=== PATIENT | male | born 1935 | race Caucasian/White ===

== ENCOUNTER → 2016-06-25 | Outpatient (CLI) | payer MEDICARE ==
[~2016-06-25] MED LIST: ADVICOR 20 MG-51 TER PO; ALBUTEROL0.83 MG/ML IH; ALTACE 10MG TAB10 MG PO; ALTACE10 MG PO; ASPIR-LOW81 MG PO; ASPIR-LOX325 MG PO; ASPIRIN E.C. 8181 MG PO; CORDARONE200 MG PO; COREG 25MG25 MG/TAB PO; COREG 6.256.25 MG/TA PO; COUMADIN 5MG5 MG/TAB PO; DIGOXIN PO; HUMULIN 70/3100 U/M1 SQ; HUMULIN 70/3100 U/ML SQ; INSULIN 70/3100 U/ML SQ; K-DUR 10 MEQ T10 MEQ PO; LANTUS100 U/ML SQ; LASIX; LASIX 20MG TABL20 MG PO; LASIX 40MG TABL40 MG PO; LEVAQUIN 750MG750 MG PO; POTASSIUM CHLO10 ME2 PO; ROCEPHIN 2GM VIAL21 IV; SYMBICORT1 AE1 IH; VENTOLIN0.09 MG IH; ZAROXOLYN 2.52.5 MG PO
== END ==
LOC: COL.RAD 09:48
DX: I70.0 Atherosclerosis of aorta (principal)

== ENCOUNTER 2017-06-24 22:29 | Inpatient (IN) | payer MEDICARE ==
[~2017-06-24] VITALS: Ht 180.3 cm; Wt 88.4 kg
[~2017-06-24 22:29] MED LIST changes: +LEVOXYL0.05 MG PO
[2017-06-24 23:03] LABS: MEAN CELL VOLUME 85 fl (80.0-100.0); MEAN CORPUSCULAR HGB CONC 33 g/dl (33.0-37.0); PLATELET COUNT 291 K/mm3 (130-400); RED BLOOD COUNT 3.71 M/mm3 (4.20-5.60); REDCELL DISTRIBUTION WIDTH-CV 16.3 % (11.5-14.5)
[2017-06-24 23:06] LABS: HEMATOCRIT 31.4 % (42.0-52.0); HEMOGLOBIN 10.3 g/dl (13.5-18.0); MEAN CORPUSCULAR HEMOGLOBIN 28 pg (27.0-31.0)
[2017-06-24 23:08] LABS: INR 1.6 (0.8-3.0); PROTHROMBIN TIME 18.2 SECONDS (9.7-12.8)
[2017-06-24 23:14] LABS: ALBUMIN 3.3 gm/dL (3.5-5.0); BILIRUBIN,TOTAL 1.1 mg/dL (0.0-1.0); CALCIUM 8.5 mg/dL (8.4-10.2); CREATININE, serum 2.43 mg/dL (0.66-1.25); POTASSIUM 4.2 mmol/L (3.4-5.0); TOTAL PROTEIN 8.2 gm/dL (6.4-8.2)
[2017-06-24 23:19] LABS: BAND 2 % (0-10); LYMPHOCYTE 2 % (20.0-51.0); METAMYELOCYTE 1 % (0-0); NEUTROPHILS 86 % (42.0-75.2); PLATELET ESTIMATE NORMAL (NORMAL)
[2017-06-24 23:20] LABS: ANISOCYTOSIS 1+; HYPOCHROMIA 1+; MICROCYTOSIS 1+
[2017-06-24 23:30] LABS: TROPONIN-I 0.046 ng/mL (0.000-0.034)
[2017-06-25] VITALS (597 sets, daily range): BP systolic 84–115; BP diastolic 48–64; PULSE 70–82; TEMP 97–98.1; O2SAT 92–100
[2017-06-25 00:25] LABS: COLLECTION METHOD CLEAN CATCH
[2017-06-25 00:57] LABS: HYALINE CAST >12 /lpf; MUCOUS Present /lpf; PH 5 (5-8); SQUAMOUS EPITHELIAL 0-2 /hpf; URINE APPEARANCE Clear; URINE BACTERIA Rare /hpf; URINE BILIRUBIN Negative (NEGATIVE); URINE BLOOD 1+ (NEGATIVE); URINE COLOR Yellow; URINE GLUCOSE Negative (NEGATIVE); URINE KETONE Negative (NEGATIVE); URINE LEUKOCYTE ESTERASE Negative (NEGATIVE); URINE NITRATE Negative (NEGATIVE); URINE PROTEIN(semi-quant) Negative (NEGATIVE)
[2017-06-25 02:06] LABS: THYROID STIMULATING HORMONE 1.55 uIU/mL (0.465-4.680)
[2017-06-25 03:22] LABS: ARTERIAL BLD GAS O2 SATURATION 96.4 % (92-100); ARTERIAL BLOOD GAS BASE EXCESS -0.9 (-2-2); ARTERIAL BLOOD GAS HCO3 22.4 meq/L (22-26); ARTERIAL BLOOD GAS PCO2 32.3 mmHg (35-45); ARTERIAL BLOOD GAS PO2 92.4 mmHg (80-100); ARTERIAL BLOOD GAS pH 7.46 (7.35-7.45)
[2017-06-25 04:23] LABS: ALBUMIN 3.1 gm/dL (3.5-5.0); BILIRUBIN,TOTAL 0.8 mg/dL (0.0-1.0); CALCIUM 8.5 mg/dL (8.4-10.2); CREATININE, serum 2.81 mg/dL (0.66-1.25); MAGNESIUM 2.5 mg/dL (1.6-2.3); PHOSPHOROUS 5.7 mg/dL (2.5-4.5); POTASSIUM 3.9 mmol/L (3.4-5.0); TOTAL PROTEIN 7.8 gm/dL (6.4-8.2)
[2017-06-25 06:53] LABS: CHOLESTEROL RISK RATIO 8.8
[2017-06-25 06:54] LABS: MEAN CELL VOLUME 85 fl (80.0-100.0); MEAN CORPUSCULAR HGB CONC 33 g/dl (33.0-37.0); MEAN PLATELET VOLUME 12.1 fl (7.4-10.4); PLATELET COUNT 289 K/mm3 (130-400); REDCELL DISTRIBUTION WIDTH-CV 16.3 % (11.5-14.5)
[2017-06-25 06:59] LABS: HEMATOCRIT 31.3 % (42.0-52.0); HEMOGLOBIN 10.3 g/dl (13.5-18.0); MEAN CORPUSCULAR HEMOGLOBIN 28 pg (27.0-31.0)
[2017-06-25 07:20] LABS: BAND 11 % (0-10); LYMPHOCYTE 5 % (20.0-51.0); NEUTROPHILS 83 % (42.0-75.2)
[2017-06-25 07:21] LABS: PLATELET ESTIMATE NORMAL (NORMAL)
[2017-06-25 09:32] LABS: ARTERIAL BLD GAS O2 SATURATION 94.4 % (92-100); ARTERIAL BLD GAS TCO2 CT 21.8; ARTERIAL BLOOD GAS BASE EXCESS -3.6 (-2-2); ARTERIAL BLOOD GAS HCO3 20.7 meq/L (22-26); ARTERIAL BLOOD GAS PO2 80.2 mmHg (80-100); ARTERIAL BLOOD GAS pH 7.39 (7.35-7.45)
[2017-06-26] VITALS (607 sets, daily range): BP systolic 99–138; BP diastolic 50–70; PULSE 75–81; TEMP 97.4–98.5; O2SAT 81–100
[2017-06-26 05:48] LABS: MEAN CELL VOLUME 84 fl (80.0-100.0); MEAN CORPUSCULAR HGB CONC 33 g/dl (33.0-37.0); MEAN PLATELET VOLUME 11.2 fl (7.4-10.4); PLATELET COUNT 332 K/mm3 (130-400); RED BLOOD COUNT 3.65 M/mm3 (4.20-5.60); REDCELL DISTRIBUTION WIDTH-CV 15.8 % (11.5-14.5)
[2017-06-26 05:54] LABS: HEMATOCRIT 30.8 % (42.0-52.0); HEMOGLOBIN 10.2 g/dl (13.5-18.0); MEAN CORPUSCULAR HEMOGLOBIN 28 pg (27.0-31.0)
[2017-06-26 06:07] LABS: CALCIUM 8.3 mg/dL (8.4-10.2); CREATININE, serum 2.52 mg/dL (0.66-1.25); MAGNESIUM 2.5 mg/dL (1.6-2.3); POTASSIUM 3.4 mmol/L (3.4-5.0)
[2017-06-26 06:21] LABS: TROPONIN-I 0.201 ng/mL (0.000-0.034)
[2017-06-26 07:08] LABS: BAND 14 % (0-10); LYMPHOCYTE 9 % (20.0-51.0); NEUTROPHILS 77 % (42.0-75.2)
[2017-06-26 07:09] LABS: PLATELET ESTIMATE NORMAL (NORMAL); TOXIC GRANULATION PRESENT
[2017-06-27 04:20] VITALS: BP 132/63; PULSE 79; TEMP 98
[2017-06-27 07:48] VITALS: BP 122/63; PULSE 92; TEMP 97.7
[2017-06-27 11:12] LABS: CALCIUM 8.9 mg/dL (8.4-10.2); CREATININE, serum 2.03 mg/dL (0.66-1.25); POTASSIUM 3.5 mmol/L (3.4-5.0)
[2017-06-27 11:55] VITALS: BP 129/53; PULSE 100; TEMP 98.4
[2017-06-27 17:44] VITALS: BP 122/54; PULSE 97; TEMP 97.8
[2017-06-27 19:46] VITALS: BP 129/55; PULSE 88; TEMP 98.9
[2017-06-27 23:30] VITALS: BP 123/50; PULSE 86; TEMP 98.8
[2017-06-28] VITALS (8 sets, daily range): BP systolic 110–134; BP diastolic 55–84; PULSE 86–91; TEMP 97.3–98.7
[2017-06-28 07:20] LABS: BASO % 0.1 % (0.0-2.0); GRAN # 18.3 (1.4-6.5); GRAN % 86.6 % (42.2-75.2); LYMPH # 0.8 (1.2-3.4); LYMPH % 3.6 % (20.0-51.0); MEAN CELL VOLUME 87 fl (80.0-100.0); MEAN CORPUSCULAR HGB CONC 32 g/dl (33.0-37.0); MEAN PLATELET VOLUME 11.3 fl (7.4-10.4); MONO # 1.6 (0.1-0.6); MONO % 7.8 % (1.7-9.3); PLATELET COUNT 381 K/mm3 (130-400); RED BLOOD COUNT 3.94 M/mm3 (4.20-5.60); REDCELL DISTRIBUTION WIDTH-CV 16.2 % (11.5-14.5)
[2017-06-28 07:32] LABS: HEMATOCRIT 34.1 % (42.0-52.0); HEMOGLOBIN 10.8 g/dl (13.5-18.0); MEAN CORPUSCULAR HEMOGLOBIN 27 pg (27.0-31.0)
[2017-06-28 07:52] LABS: BILIRUBIN,TOTAL 0.6 mg/dL (0.0-1.0); CALCIUM 8.7 mg/dL (8.4-10.2); CREATININE, serum 2.01 mg/dL (0.66-1.25); POTASSIUM 3.2 mmol/L (3.4-5.0); TOTAL PROTEIN 7.5 gm/dL (6.4-8.2)
[2017-06-29] VITALS (10 sets, daily range): BP systolic 94–122; BP diastolic 49–74; PULSE 46–100; TEMP 97.6–98.3
[2017-06-29 06:27] LABS: MEAN CELL VOLUME 85 fl (80.0-100.0); MEAN CORPUSCULAR HGB CONC 32 g/dl (33.0-37.0); MEAN PLATELET VOLUME 11.1 fl (7.4-10.4); PLATELET COUNT 386 K/mm3 (130-400); RED BLOOD COUNT 3.97 M/mm3 (4.20-5.60)
[2017-06-29 06:43] LABS: CALCIUM 8.7 mg/dL (8.4-10.2); CREATININE, serum 2.44 mg/dL (0.66-1.25); HEMATOCRIT 33.8 % (42.0-52.0); HEMOGLOBIN 10.8 g/dl (13.5-18.0); MEAN CORPUSCULAR HEMOGLOBIN 27 pg (27.0-31.0); POTASSIUM 3.8 mmol/L (3.4-5.0)
[2017-06-29 07:36] LABS: BAND 4 % (0-10); LYMPHOCYTE 2 % (20.0-51.0); NEUTROPHILS 93 % (42.0-75.2); PLATELET ESTIMATE NORMAL (NORMAL); TOXIC GRANULATION PRESENT
[2017-06-29 07:38] LABS: DOHLE BODIES PRESENT
[2017-06-30] VITALS (7 sets, daily range): BP systolic 93–112; BP diastolic 26–72; PULSE 57–95; TEMP 97.6–98.6
[2017-06-30 06:36] LABS: MEAN CELL VOLUME 87 fl (80.0-100.0); MEAN CORPUSCULAR HGB CONC 32 g/dl (33.0-37.0); MEAN PLATELET VOLUME 11.3 fl (7.4-10.4); PLATELET COUNT 388 K/mm3 (130-400); RED BLOOD COUNT 3.74 M/mm3 (4.20-5.60); REDCELL DISTRIBUTION WIDTH-CV 16.2 % (11.5-14.5)
[2017-06-30 07:01] LABS: CALCIUM 8.8 mg/dL (8.4-10.2); CREATININE, serum 2.32 mg/dL (0.66-1.25); MAGNESIUM 2.8 mg/dL (1.6-2.3); POTASSIUM 3.4 mmol/L (3.4-5.0)
[2017-06-30 07:10] LABS: HEMOGLOBIN 10.3 g/dl (13.5-18.0); MEAN CORPUSCULAR HEMOGLOBIN 28 pg (27.0-31.0)
[2017-06-30 07:11] LABS: HEMATOCRIT 32.6 % (42.0-52.0)
[2017-06-30 07:57] LABS: BAND 1 % (0-10); LYMPHOCYTE 4 % (20.0-51.0); NEUTROPHILS 92 % (42.0-75.2); PLATELET ESTIMATE NORMAL (NORMAL); TOXIC GRANULATION PRESENT
[2017-06-30 22:48] LABS: CALCIUM 8.2 mg/dL (8.4-10.2); CREATININE, serum 2.41 mg/dL (0.66-1.25); POTASSIUM 3.5 mmol/L (3.4-5.0)
[2017-07-01 03:29] VITALS: BP 135/55; PULSE 67; TEMP 97.9
[2017-07-01 06:55] LABS: MEAN CELL VOLUME 86 fl (80.0-100.0); MEAN CORPUSCULAR HEMOGLOBIN 28 pg (27.0-31.0); MEAN CORPUSCULAR HGB CONC 32 g/dl (33.0-37.0); MEAN PLATELET VOLUME 11.3 fl (7.4-10.4); PLATELET COUNT 351 K/mm3 (130-400)
[2017-07-01 06:57] LABS: HEMATOCRIT 30.9 % (42.0-52.0)
[2017-07-01 07:11] LABS: CALCIUM 8.3 mg/dL (8.4-10.2); CREATININE, serum 2.24 mg/dL (0.66-1.25); POTASSIUM 3.3 mmol/L (3.4-5.0)
[2017-07-01 07:38] VITALS: BP 103/38; PULSE 66; TEMP 98.4
[2017-07-01 07:47] LABS: BAND 5 % (0-10); EOSINOPHIL 1 % (0-4); LYMPHOCYTE 2 % (20.0-51.0); METAMYELOCYTE 1 % (0-0); NEUTROPHILS 86 % (42.0-75.2); PLATELET ESTIMATE NORMAL (NORMAL)
[2017-07-01 08:12] LABS: ANISOCYTOSIS 1+; POLYCHROMASIA 1+
[2017-07-01 12:38] VITALS: BP 114/40; PULSE 64; TEMP 97.7
[2017-07-01 15:50] VITALS: BP 111/45; PULSE 65; TEMP 98
[2017-07-01 20:27] VITALS: BP 110/48; PULSE 65; TEMP 98.5
[2017-07-02 00:02] VITALS: BP 110/49; PULSE 66; TEMP 98
[2017-07-02 03:11] VITALS: BP 129/59; PULSE 66
[2017-07-02 06:45] LABS: MEAN CELL VOLUME 88 fl (80.0-100.0); MEAN CORPUSCULAR HGB CONC 31 g/dl (33.0-37.0); MEAN PLATELET VOLUME 11.5 fl (7.4-10.4); PLATELET COUNT 332 K/mm3 (130-400); RED BLOOD COUNT 3.55 M/mm3 (4.20-5.60); REDCELL DISTRIBUTION WIDTH-CV 16.3 % (11.5-14.5)
[2017-07-02 06:55] LABS: HEMATOCRIT 31.3 % (42.0-52.0); HEMOGLOBIN 9.8 g/dl (13.5-18.0); MEAN CORPUSCULAR HEMOGLOBIN 28 pg (27.0-31.0)
[2017-07-02 06:59] LABS: CALCIUM 8.2 mg/dL (8.4-10.2); CREATININE, serum 2.05 mg/dL (0.66-1.25); MAGNESIUM 2.6 mg/dL (1.6-2.3); POTASSIUM 3.2 mmol/L (3.4-5.0)
[2017-07-02 08:19] VITALS: BP 130/59; PULSE 65; TEMP 98.7
[2017-07-02 08:33] LABS: ANISOCYTOSIS 1+; BAND 1 % (0-10); EOSINOPHIL 1 % (0-4); LYMPHOCYTE 7 % (20.0-51.0); MYELOCYTE 1 % (0-0); NEUTROPHILS 85 % (42.0-75.2); PLATELET ESTIMATE NORMAL (NORMAL)
[2017-07-02 08:34] LABS: POLYCHROMASIA 1+
[2017-07-02 08:35] LABS: TOXIC GRANULATION PRESENT
[2017-07-02] MEDS ORDERED: ELIQUIS 2.5 PO (09:38)
[2017-07-02] MEDS ORDERED: ALTACE 10MG TAB10 MG PO (09:38)
[2017-07-02] MEDS ORDERED: HYDROCORTISONE30 G3 TP (09:39)
[2017-07-02] MEDS ORDERED: CLEOCIN HCL300 MG PO (09:41)
== END 2017-07-02 14:15 | DRG 871 ==
LOC: COL.ER 22:29 → ICU 06-25 00:21 → MEDICAL 06-26 17:36
PROVIDERS: Anesthesiology Critical Care Medicine; Emergency Medicine; Internal Medicine; Internal Medicine Pulmonary Disease; Nurse Practitioner Family; Physician Assistant
PROC: 5A2204Z Restoration of Cardiac Rhythm, Single (ICD-10-PCS; principal; 2017-06-29)
DX: A41.02 Sepsis due to Methicillin resistant Staphylococcus aureus (principal); I50.23 Acute on chronic systolic (congestive) heart failure; J69.0 Pneumonitis due to inhalation of food and vomit; I13.0 Hypertensive heart and chronic kidney disease with heart failure and stage 1 through stage 4 chronic kidney disease, or unspecified chronic kidney disease; N17.9 Acute kidney failure, unspecified; E87.1 Hypo-osmolality and hyponatremia; N18.3 Chronic kidney disease, stage 3 (moderate); E11.22 Type 2 diabetes mellitus with diabetic chronic kidney disease; I25.10 Atherosclerotic heart disease of native coronary artery without angina pectoris; I48.91 Unspecified atrial fibrillation; E11.65 Type 2 diabetes mellitus with hyperglycemia; E87.6 Hypokalemia; Z95.2 Presence of prosthetic heart valve; Z95.1 Presence of aortocoronary bypass graft; Z79.4 Long term (current) use of insulin; Z87.891 Personal history of nicotine dependence; I34.0 Nonrheumatic mitral (valve) insufficiency
CPT/HCPCS: 99223-AI; 99231-AI; 99232-AI; 99233-AI; 99239; C1751; G9654; J0696; J1250; J1644; J1815; J1940; J2543; J2704; J2930; J3010; J3370; J3480; J7040; J7050; J7060

== ENCOUNTER 2017-07-13 14:59 | Inpatient (IN) | payer MEDICARE ==
[~2017-07-13] VITALS: Ht 177.8 cm; Wt 90.4 kg
[~2017-07-13 14:59] MED LIST changes: +CLEOCIN HCL300 MG PO; +ELIQUIS 2.5 PO; +HYDROCORTISONE30 G3 TP
[2017-07-13 15:55] LABS: BASO # 0.1 (0.0-0.2); BASO % 0.5 % (0.0-2.0); EOS # 0.2 (0.0-0.7); EOS % 1.8 % (0-4.0); GRAN # 8.9 (1.4-6.5); GRAN % 78.3 % (42.2-75.2); INR 1.7 (0.8-3.0); LYMPH # 1.1 (1.2-3.4); LYMPH % 9.2 % (20.0-51.0); MEAN CELL VOLUME 86 fl (80.0-100.0); MEAN CORPUSCULAR HGB CONC 31 g/dl (33.0-37.0); MEAN PLATELET VOLUME 10.4 fl (7.4-10.4); MONO % 9.1 % (1.7-9.3); PLATELET COUNT 258 K/mm3 (130-400); PROTHROMBIN TIME 18.9 SECONDS (9.7-12.8); RED BLOOD COUNT 3.29 M/mm3 (4.20-5.60); REDCELL DISTRIBUTION WIDTH-CV 16.1 % (11.5-14.5)
[2017-07-13 15:58] LABS: PARTIAL THROMBOPLASTIN TIME 38.4 SECONDS (26.0-37.0)
[2017-07-13 16:05] LABS: ALBUMIN 2.7 gm/dL (3.5-5.0); BILIRUBIN,TOTAL 0.3 mg/dL (0.0-1.0); CALCIUM 8.4 mg/dL (8.4-10.2); CREATININE, serum 1.49 mg/dL (0.66-1.25); POTASSIUM 5.1 mmol/L (3.4-5.0)
[2017-07-13 16:14] LABS: COLLECTION METHOD CLEAN CATCH
[2017-07-13 16:16] LABS: C-REACTIVE PROTEIN 13.4 mg/dL (0.0-0.9)
[2017-07-13 16:18] LABS: TROPONIN-I 0.043 ng/mL (0.000-0.034)
[2017-07-13 16:21] LABS: ERYTHROCYTE SEDIMENTATION RATE > 140 mm/hr (0-30); HEMATOCRIT 28.3 % (42.0-52.0); HEMOGLOBIN 8.9 g/dl (13.5-18.0); MEAN CORPUSCULAR HEMOGLOBIN 27 pg (27.0-31.0)
[2017-07-13 16:27] LABS: HYALINE CAST >12 /lpf; MUCOUS Present /lpf; PH 5 (5-8); SQUAMOUS EPITHELIAL None Seen /hpf; URINE APPEARANCE Clear; URINE BACTERIA None Seen /hpf; URINE BILIRUBIN Negative (NEGATIVE); URINE BLOOD 1+ (NEGATIVE); URINE COLOR Yellow; URINE GLUCOSE Negative (NEGATIVE); URINE KETONE Negative (NEGATIVE); URINE LEUKOCYTE ESTERASE Negative (NEGATIVE); URINE NITRATE Negative (NEGATIVE); URINE PROTEIN(semi-quant) Negative (NEGATIVE); URINE UROBILINOGEN Negative (NEGATIVE)
[2017-07-13] MEDS ORDERED: ULTRAM 50MG TAB50 MG PO (17:33)
[2017-07-13 19:29] VITALS: BP 91/44; PULSE 62; TEMP 98
[2017-07-13 20:25] VITALS: BP 91/44; PULSE 62; TEMP 98
[2017-07-13 23:33] VITALS: BP 102/45; PULSE 65; TEMP 98.1
[2017-07-14 04:49] VITALS: BP 122/58; PULSE 72; TEMP 98
[2017-07-14 08:03] VITALS: BP 122/67; PULSE 81; TEMP 98.7
[2017-07-14 09:35] LABS: BASO # 0.1 (0.0-0.2); BASO % 0.6 % (0.0-2.0); EOS # 0.2 (0.0-0.7); EOS % 2.4 % (0-4.0); GRAN # 6.9 (1.4-6.5); GRAN % 79.8 % (42.2-75.2); LYMPH # 0.7 (1.2-3.4); LYMPH % 7.5 % (20.0-51.0); MEAN CELL VOLUME 88 fl (80.0-100.0); MEAN CORPUSCULAR HGB CONC 31 g/dl (33.0-37.0); MEAN PLATELET VOLUME 11.4 fl (7.4-10.4); MONO # 0.8 (0.1-0.6); MONO % 8.8 % (1.7-9.3); PLATELET COUNT 202 K/mm3 (130-400); RED BLOOD COUNT 3.19 M/mm3 (4.20-5.60); REDCELL DISTRIBUTION WIDTH-CV 15.9 % (11.5-14.5)
[2017-07-14 09:36] LABS: HEMATOCRIT 27.9 % (42.0-52.0); HEMOGLOBIN 8.6 g/dl (13.5-18.0); MEAN CORPUSCULAR HEMOGLOBIN 27 pg (27.0-31.0)
[2017-07-14 09:46] LABS: CALCIUM 8.2 mg/dL (8.4-10.2); CREATININE, serum 1.37 mg/dL (0.66-1.25); POTASSIUM 4.7 mmol/L (3.4-5.0)
[2017-07-14 12:38] VITALS: BP 123/58; PULSE 79; TEMP 98.4
[2017-07-14 15:48] VITALS: BP 98/75; PULSE 81; TEMP 98.4
[2017-07-14 19:32] VITALS: BP 130/55; PULSE 79; TEMP 101.3
[2017-07-14 23:14] VITALS: BP 136/63; PULSE 81; TEMP 98.7
[2017-07-15] VITALS (7 sets, daily range): BP systolic 101–163; BP diastolic 46–81; PULSE 81–90; TEMP 98.2–99.8
[2017-07-15 06:59] LABS: BASO # 0.1 (0.0-0.2); BASO % 0.7 % (0.0-2.0); EOS # 0.3 (0.0-0.7); EOS % 3.3 % (0-4.0); GRAN # 5.5 (1.4-6.5); GRAN % 72.9 % (42.2-75.2); LYMPH # 0.9 (1.2-3.4); LYMPH % 11.7 % (20.0-51.0); MEAN CELL VOLUME 87 fl (80.0-100.0); MEAN CORPUSCULAR HGB CONC 31 g/dl (33.0-37.0); MEAN PLATELET VOLUME 10.3 fl (7.4-10.4); MONO # 0.8 (0.1-0.6); MONO % 10.6 % (1.7-9.3); PLATELET COUNT 242 K/mm3 (130-400); RED BLOOD COUNT 2.86 M/mm3 (4.20-5.60); REDCELL DISTRIBUTION WIDTH-CV 15.9 % (11.5-14.5)
[2017-07-15 07:19] LABS: HEMATOCRIT 24.8 % (42.0-52.0); HEMOGLOBIN 7.7 g/dl (13.5-18.0); MEAN CORPUSCULAR HEMOGLOBIN 27 pg (27.0-31.0)
[2017-07-15 07:32] LABS: ANION GAP 9 mmol/L (7-16); BLOOD UREA NITROGEN 24 mg/dL (9-20); CALCIUM 7.6 mg/dL (8.4-10.2); CARBON DIOXIDE 26 mmol/L (22-30); CHLORIDE 103 mmol/L (98-107); GLUCOSE 147 mg/dL (74-106); POTASSIUM 4.3 mmol/L (3.4-5.0); SODIUM 137 mmol/L (137-145)
[2017-07-15 13:31] LABS: RETIC # 0.06 M/mm3 (0.02-0.16)
[2017-07-15 13:53] LABS: IRON,SERUM 12 ug/dL (35-150)
[2017-07-15 14:03] LABS: TOTAL IRON BINDING CAPACITY 180 ug/dL (261-462)
[2017-07-15 14:30] LABS: FERRITIN 739 ng/mL (18-464)
[2017-07-16 03:34] VITALS: BP 122/61; PULSE 85; TEMP 99.1
[2017-07-16 06:48] LABS: BASO % 0.4 % (0.0-2.0); EOS # 0.2 (0.0-0.7); EOS % 2.7 % (0-4.0); GRAN # 5.1 (1.4-6.5); GRAN % 73.4 % (42.2-75.2); LYMPH # 0.8 (1.2-3.4); MEAN CELL VOLUME 86 fl (80.0-100.0); MEAN CORPUSCULAR HGB CONC 31 g/dl (33.0-37.0); MEAN PLATELET VOLUME 10.2 fl (7.4-10.4); MONO # 0.7 (0.1-0.6); MONO % 10.4 % (1.7-9.3); PLATELET COUNT 263 K/mm3 (130-400); RED BLOOD COUNT 2.88 M/mm3 (4.20-5.60); REDCELL DISTRIBUTION WIDTH-CV 15.8 % (11.5-14.5)
[2017-07-16 06:55] LABS: HEMATOCRIT 24.7 % (42.0-52.0); HEMOGLOBIN 7.7 g/dl (13.5-18.0); MEAN CORPUSCULAR HEMOGLOBIN 27 pg (27.0-31.0)
[2017-07-16 07:08] LABS: CALCIUM 7.9 mg/dL (8.4-10.2); CREATININE, serum 1.11 mg/dL (0.66-1.25); POTASSIUM 4.1 mmol/L (3.4-5.0)
[2017-07-16 08:06] VITALS: BP 150/58; PULSE 84; TEMP 98.3
[2017-07-16] MEDS ORDERED: FERROUS SU325 MG/TAB PO (10:45)
[2017-07-16] MEDS ORDERED: DOXYCYCLINE 10100 MG PO (10:45)
[2017-07-16] MEDS ORDERED: K-TAB10 PO (10:46)
[2017-07-16] MEDS ORDERED: LASIX 20MG TABL20 MG PO (10:46)
[2017-07-16] MEDS ORDERED: TYLENOL 325MG325 MG PO (10:46)
[2017-07-16] MEDS ORDERED: STOOL SOFTENER100 M2 PO (10:47)
[2017-07-16] MEDS ORDERED: ULTRAM 50MG TAB50 MG PO (10:48)
[2017-07-16] MEDS ORDERED: FOLIC ACID 11 MG/TA1 PO (10:48)
[2017-07-16] MEDS ORDERED: HUMULIN 70/30 PE3 ML SQ (10:48)
[2017-07-16 12:08] VITALS: BP 104/63; PULSE 100; TEMP 98.4
[2017-07-16 12:30] VITALS: BP 104/63; PULSE 100; TEMP 98.4
== END 2017-07-16 14:00 | DRG 314 ==
LOC: COL.ER 14:59 → MEDICAL 16:36
PROVIDERS: Emergency Medicine; Physician Assistant
DX: T80.218A Other infection due to central venous catheter, initial encounter (principal); A41.9 Sepsis, unspecified organism; I50.22 Chronic systolic (congestive) heart failure; Z66 Do not resuscitate; I11.0 Hypertensive heart disease with heart failure; E11.649 Type 2 diabetes mellitus with hypoglycemia without coma; I48.91 Unspecified atrial fibrillation; Z95.1 Presence of aortocoronary bypass graft; Z79.4 Long term (current) use of insulin; Z87.891 Personal history of nicotine dependence; Z95.2 Presence of prosthetic heart valve
CPT/HCPCS: 99223-AI; 99232-AI; 99233-AI; 99239; J1815; J3370; J7050

== ENCOUNTER 2017-07-22 18:30 | Emergency (ER) | payer MEDICARE ==
[~2017-07-22] VITALS: Ht 177.8 cm; Wt 95.5 kg
[~2017-07-22 18:30] MED LIST changes: +DOXYCYCLINE 10100 MG PO; +FERROUS SU325 MG/TAB PO; +FOLIC ACID 11 MG/TA1 PO; +HUMULIN 70/30 PE3 ML SQ; +K-TAB10 PO; +STOOL SOFTENER100 M2 PO; +TYLENOL 325MG325 MG PO; +ULTRAM 50MG TAB50 MG PO
[2017-07-22 18:35] VITALS: TEMP 98.8
[2017-07-22 19:52] LABS: MEAN CELL VOLUME 86 fl (80.0-100.0); MEAN CORPUSCULAR HGB CONC 30 g/dl (33.0-37.0); MEAN PLATELET VOLUME 10.3 fl (7.4-10.4); PLATELET COUNT 422 K/mm3 (130-400); RED BLOOD COUNT 2.92 M/mm3 (4.20-5.60); REDCELL DISTRIBUTION WIDTH-CV 16.1 % (11.5-14.5)
[2017-07-22 19:55] LABS: HEMATOCRIT 25.1 % (42.0-52.0); HEMOGLOBIN 7.6 g/dl (13.5-18.0); MEAN CORPUSCULAR HEMOGLOBIN 26 pg (27.0-31.0)
[2017-07-22 20:06] LABS: ALANINE AMINOTRANSFERASE 84 U/L (21-72); ALBUMIN 2.5 gm/dL (3.5-5.0); ALKALINE PHOSPHATASE 267 U/L (50-136); ANION GAP 11 mmol/L (7-16); AST,SGOT 52 U/L (15-37); BILIRUBIN,TOTAL 0.3 mg/dL (0.0-1.0); BLOOD UREA NITROGEN 26 mg/dL (9-20); C-REACTIVE PROTEIN 5.4 mg/dL (0.0-0.9); CARBON DIOXIDE 25 mmol/L (22-30); CHLORIDE 102 mmol/L (98-107); GLUCOSE 228 mg/dL (74-106); POTASSIUM 4.3 mmol/L (3.4-5.0); SODIUM 138 mmol/L (137-145); TOTAL PROTEIN 6.5 gm/dL (6.4-8.2)
[2017-07-22 20:12] LABS: INR 1.6 (0.8-3.0); PROTHROMBIN TIME 18.1 SECONDS (9.7-12.8)
[2017-07-22 20:15] LABS: PARTIAL THROMBOPLASTIN TIME 36.7 SECONDS (26.0-37.0)
[2017-07-22 20:21] LABS: TROPONIN-I < 0.012 ng/mL (0.000-0.034)
[2017-07-22 20:22] LABS: COLLECTION METHOD CLEAN CATCH
[2017-07-22 20:36] LABS: HYALINE CAST >12 /lpf; MUCOUS Present /lpf; PH 5 (5-8); SQUAMOUS EPITHELIAL 0-2 /hpf; URINE APPEARANCE Clear; URINE BACTERIA Rare /hpf; URINE BILIRUBIN Negative (NEGATIVE); URINE BLOOD 1+ (NEGATIVE); URINE COLOR Yellow; URINE GLUCOSE Negative (NEGATIVE); URINE KETONE Negative (NEGATIVE); URINE LEUKOCYTE ESTERASE Negative (NEGATIVE); URINE NITRATE Negative (NEGATIVE); URINE PROTEIN(semi-quant) Negative (NEGATIVE); URINE RBC 0-2 /hpf; URINE UROBILINOGEN Negative (NEGATIVE)
[2017-07-22] MEDS ORDERED: CLEOCIN HCL300 MG PO (20:40)
[2017-07-22] MEDS ORDERED: HEPARIN 100U100 U/M1 (20:41)
[2017-07-22] MEDS ORDERED: HUMULIN R 10100 U/ML SQ (20:42)
[2017-07-22] MEDS ORDERED: HUMULIN 70/3100 U/M1 SQ (20:43)
[2017-07-22] MEDS ORDERED: LASIX 40MG TABL40 MG PO (20:44)
[2017-07-22] MEDS ORDERED: KLOR-CON SPRIN10 MEQ PO (20:44)
[2017-07-22 22:08] LABS: BAND 2 % (0-10); EOSINOPHIL 1 % (0-4); LYMPHOCYTE 14 % (20.0-51.0); NEUTROPHILS 80 % (42.0-75.2); PLATELET ESTIMATE NORMAL (NORMAL)
[2017-07-22 23:10] VITALS: BP 121/76; PULSE 65
[2017-07-23] MEDS ORDERED: ZAROXOLYN 2.52.5 MG PO (13:41)
[2017-07-23] MEDS ORDERED: ALTACE 5MG5 MG PO (13:42)
== END 2017-07-22 23:10 ==
LOC: COL.ER 18:30
PROVIDERS: Emergency Medicine
DX: D64.9 Anemia, unspecified (principal); E11.9 Type 2 diabetes mellitus without complications; I11.0 Hypertensive heart disease with heart failure; I50.9 Heart failure, unspecified; I48.91 Unspecified atrial fibrillation; Z79.01 Long term (current) use of anticoagulants; Z79.82 Long term (current) use of aspirin; Z79.4 Long term (current) use of insulin

== ENCOUNTER 2017-07-24 11:00 | Outpatient (RCR) | payer MEDICARE ==
[2017-07-23 14:50] VITALS: BP 114/58; PULSE 63; TEMP 98.2
[2017-07-23 15:05] VITALS: BP 113/53; PULSE 64; TEMP 98.3
[2017-07-23 15:22] VITALS: BP 119/77; PULSE 60; TEMP 98.1
[2017-07-23 16:05] VITALS: BP 120/52; PULSE 62; TEMP 98.2
[2017-07-23 17:05] VITALS: BP 113/51; PULSE 64; TEMP 97.6
[2017-07-23 17:26] VITALS: BP 120/56; PULSE 60; TEMP 98
[~2017-07-24] VITALS: Ht 177.8 cm; Wt 95.6 kg
[~2017-07-24 11:00] MED LIST changes: +ALTACE 5MG5 MG PO; +HEPARIN 100U100 U/M1; +HUMULIN R 10100 U/ML SQ; +KLOR-CON SPRIN10 MEQ PO
[2017-07-24 11:56] VITALS: BP 124/56; PULSE 67; TEMP 98.6
[2017-07-24 12:11] VITALS: BP 126/53; PULSE 75; TEMP 98.6
[2017-07-24 12:41] VITALS: BP 143/68; PULSE 82; TEMP 98.2
[2017-07-24 13:41] VITALS: BP 135/56; PULSE 82; TEMP 98.6
[2017-07-24 14:00] VITALS: BP 118/61; PULSE 77; TEMP 98.2
== END 2017-07-24 14:19 | disposition home or self-care (01) ==
LOC: EUO 11:00
DX: D64.9 Anemia, unspecified (principal); I50.9 Heart failure, unspecified
CPT/HCPCS: J1940; J7050; P9016

== ENCOUNTER 2017-07-30 17:28 | Inpatient (IN) | payer MEDICARE ==
[~2017-07-30] VITALS: Ht 177.8 cm; Wt 86.8 kg
[2017-07-30] VITALS (84 sets, daily range): BP systolic 106; BP diastolic 51; PULSE 90; TEMP 98.3; O2SAT 90–100
[2017-07-30 18:09] LABS: BASO # 0.1 (0.0-0.2); BASO % 0.4 % (0.0-2.0); EOS % 0.1 % (0-4.0); GRAN # 14.5 (1.4-6.5); HEMATOCRIT 30.5 % (42.0-52.0); HEMOGLOBIN 9.6 g/dl (13.5-18.0); LYMPH # 1.5 (1.2-3.4); LYMPH % 8.4 % (20.0-51.0); MEAN CELL VOLUME 84 fl (80.0-100.0); MEAN CORPUSCULAR HEMOGLOBIN 26 pg (27.0-31.0); MEAN CORPUSCULAR HGB CONC 32 g/dl (33.0-37.0); MEAN PLATELET VOLUME 10.2 fl (7.4-10.4); MONO # 1.6 (0.1-0.6); MONO % 9.2 % (1.7-9.3); PLATELET COUNT 434 K/mm3 (130-400); RED BLOOD COUNT 3.63 M/mm3 (4.20-5.60); REDCELL DISTRIBUTION WIDTH-CV 16.7 % (11.5-14.5)
[2017-07-30 18:15] LABS: INR 1.8 (0.8-3.0); PROTHROMBIN TIME 19.9 SECONDS (9.7-12.8)
[2017-07-30 18:18] LABS: PARTIAL THROMBOPLASTIN TIME 41.8 SECONDS (26.0-37.0)
[2017-07-30 18:20] LABS: ALBUMIN 2.8 gm/dL (3.5-5.0); BILIRUBIN,TOTAL 0.9 mg/dL (0.0-1.0); CALCIUM 8.2 mg/dL (8.4-10.2); CREATININE, serum 1.77 mg/dL (0.66-1.25); POTASSIUM 3.7 mmol/L (3.4-5.0); TOTAL PROTEIN 7.4 gm/dL (6.4-8.2)
[2017-07-30] MEDS ORDERED: HUMULIN 70/3100 U/M1 SQ (18:24)
[2017-07-30 18:37] LABS: TROPONIN-I 0.064 ng/mL (0.000-0.034)
[2017-07-30] MEDS ORDERED: WHEY PROTEIN IS1 POW PO (21:30)
[2017-07-30 21:54] LABS: COLLECTION METHOD CLEAN CATCH
[2017-07-30 22:00] LABS: MUCOUS Present /lpf; PH 5 (5-8); SQUAMOUS EPITHELIAL 0-2 /hpf; URINE APPEARANCE Clear; URINE BACTERIA None Seen /hpf; URINE BILIRUBIN Negative (NEGATIVE); URINE BLOOD Negative (NEGATIVE); URINE COLOR Yellow; URINE GLUCOSE Negative (NEGATIVE); URINE KETONE Negative (NEGATIVE); URINE LEUKOCYTE ESTERASE Negative (NEGATIVE); URINE NITRATE Negative (NEGATIVE); URINE PROTEIN(semi-quant) Negative (NEGATIVE)
[2017-07-31] VITALS (540 sets, daily range): BP systolic 97–129; BP diastolic 49–67; PULSE 71–101; TEMP 98.1–98.7; O2SAT 69–100
[2017-07-31 05:51] LABS: BASO # 0.1 (0.0-0.2); BASO % 0.7 % (0.0-2.0); EOS % 0.3 % (0-4.0); GRAN # 8.9 (1.4-6.5); GRAN % 78.4 % (42.2-75.2); LYMPH # 1.3 (1.2-3.4); LYMPH % 11.3 % (20.0-51.0); MEAN CELL VOLUME 85 fl (80.0-100.0); MEAN CORPUSCULAR HGB CONC 31 g/dl (33.0-37.0); MEAN PLATELET VOLUME 10.2 fl (7.4-10.4); MONO % 8.5 % (1.7-9.3); PLATELET COUNT 374 K/mm3 (130-400); RED BLOOD COUNT 3.23 M/mm3 (4.20-5.60); REDCELL DISTRIBUTION WIDTH-CV 16.6 % (11.5-14.5)
[2017-07-31 05:53] LABS: HEMATOCRIT 27.6 % (42.0-52.0); HEMOGLOBIN 8.6 g/dl (13.5-18.0); MEAN CORPUSCULAR HEMOGLOBIN 27 pg (27.0-31.0)
[2017-07-31 06:02] LABS: CALCIUM 7.9 mg/dL (8.4-10.2); CREATININE, serum 1.77 mg/dL (0.66-1.25); POTASSIUM 3.3 mmol/L (3.4-5.0)
[2017-07-31 06:20] LABS: TROPONIN-I 0.058 ng/mL (0.000-0.034)
[2017-08-01 04:35] VITALS: BP 108/54; PULSE 72; TEMP 98.6
[2017-08-01 07:27] LABS: BASO # 0.1 (0.0-0.2); BASO % 0.7 % (0.0-2.0); EOS # 0.1 (0.0-0.7); EOS % 0.6 % (0-4.0); GRAN # 9.5 (1.4-6.5); GRAN % 78.1 % (42.2-75.2); LYMPH # 1.2 (1.2-3.4); LYMPH % 10.1 % (20.0-51.0); MEAN CELL VOLUME 84 fl (80.0-100.0); MEAN CORPUSCULAR HGB CONC 31 g/dl (33.0-37.0); MEAN PLATELET VOLUME 10.7 fl (7.4-10.4); MONO # 1.2 (0.1-0.6); MONO % 9.7 % (1.7-9.3); PLATELET COUNT 411 K/mm3 (130-400); RED BLOOD COUNT 3.17 M/mm3 (4.20-5.60); REDCELL DISTRIBUTION WIDTH-CV 16.8 % (11.5-14.5)
[2017-08-01 07:31] LABS: HEMATOCRIT 26.7 % (42.0-52.0); HEMOGLOBIN 8.3 g/dl (13.5-18.0); MEAN CORPUSCULAR HEMOGLOBIN 26 pg (27.0-31.0)
[2017-08-01 07:50] LABS: ALBUMIN 2.4 gm/dL (3.5-5.0); BILIRUBIN,TOTAL 0.8 mg/dL (0.0-1.0); CREATININE, serum 1.67 mg/dL (0.66-1.25); POTASSIUM 3.4 mmol/L (3.4-5.0); TOTAL PROTEIN 6.3 gm/dL (6.4-8.2)
[2017-08-01 07:55] VITALS: BP 118/48; PULSE 72; TEMP 98.3
[2017-08-01 13:41] VITALS: BP 111/50; PULSE 83; TEMP 98.6
[2017-08-01 16:59] VITALS: BP 122/51; PULSE 81; TEMP 98.4
[2017-08-01 21:03] VITALS: BP 124/84; PULSE 74; TEMP 98.6
[2017-08-01 23:05] VITALS: BP 125/50; PULSE 82; TEMP 98.6
[2017-08-02 06:25] VITALS: BP 104/50; PULSE 74; TEMP 98.6
[2017-08-02 07:25] VITALS: BP 106/44; PULSE 77; TEMP 98.5
[2017-08-02 09:14] LABS: BASO # 0.1 (0.0-0.2); BASO % 0.6 % (0.0-2.0); EOS # 0.1 (0.0-0.7); EOS % 0.6 % (0-4.0); GRAN # 10.5 (1.4-6.5); GRAN % 81.9 % (42.2-75.2); LYMPH # 1.1 (1.2-3.4); LYMPH % 8.9 % (20.0-51.0); MEAN CELL VOLUME 86 fl (80.0-100.0); MEAN CORPUSCULAR HGB CONC 31 g/dl (33.0-37.0); MEAN PLATELET VOLUME 10.3 fl (7.4-10.4); MONO # 0.9 (0.1-0.6); MONO % 7.1 % (1.7-9.3); PLATELET COUNT 379 K/mm3 (130-400); RED BLOOD COUNT 3.13 M/mm3 (4.20-5.60); REDCELL DISTRIBUTION WIDTH-CV 16.8 % (11.5-14.5)
[2017-08-02 09:15] LABS: HEMATOCRIT 26.8 % (42.0-52.0); HEMOGLOBIN 8.4 g/dl (13.5-18.0); MEAN CORPUSCULAR HEMOGLOBIN 27 pg (27.0-31.0)
[2017-08-02 09:24] LABS: CALCIUM 7.8 mg/dL (8.4-10.2); CREATININE, serum 1.6 mg/dL (0.66-1.25); POTASSIUM 3.5 mmol/L (3.4-5.0)
[2017-08-02 11:33] VITALS: BP 112/56; PULSE 76; TEMP 98.4
[2017-08-02 15:44] VITALS: BP 111/59; PULSE 85; TEMP 97.7
[2017-08-02 20:48] VITALS: BP 118/50; PULSE 83; TEMP 98.2
[2017-08-03 00:21] VITALS: BP 117/53; PULSE 85; TEMP 98.8
[2017-08-03 04:03] VITALS: BP 120/59; PULSE 91; TEMP 98.6
[2017-08-03 07:21] VITALS: BP 116/64; PULSE 94; TEMP 98.3
[2017-08-03 07:29] LABS: BASO # 0.1 (0.0-0.2); BASO % 0.9 % (0.0-2.0); EOS # 0.1 (0.0-0.7); EOS % 0.6 % (0-4.0); GRAN # 11.3 (1.4-6.5); GRAN % 82.9 % (42.2-75.2); LYMPH % 7.2 % (20.0-51.0); MEAN CELL VOLUME 85 fl (80.0-100.0); MEAN CORPUSCULAR HGB CONC 31 g/dl (33.0-37.0); MEAN PLATELET VOLUME 10.5 fl (7.4-10.4); MONO % 7.3 % (1.7-9.3); PLATELET COUNT 397 K/mm3 (130-400); RED BLOOD COUNT 3.09 M/mm3 (4.20-5.60); REDCELL DISTRIBUTION WIDTH-CV 16.8 % (11.5-14.5)
[2017-08-03 07:38] LABS: HEMATOCRIT 26.4 % (42.0-52.0); HEMOGLOBIN 8.1 g/dl (13.5-18.0); MEAN CORPUSCULAR HEMOGLOBIN 26 pg (27.0-31.0)
[2017-08-03 07:52] LABS: CALCIUM 8.1 mg/dL (8.4-10.2); CREATININE, serum 1.44 mg/dL (0.66-1.25); POTASSIUM 3.7 mmol/L (3.4-5.0)
[2017-08-03 13:41] VITALS: BP 116/74; PULSE 74; TEMP 98.2
[2017-08-03 15:25] VITALS: BP 110/60; PULSE 88; TEMP 98.1
[2017-08-03 19:27] VITALS: BP 114/57; PULSE 78; TEMP 98.1
[2017-08-04 00:12] VITALS: BP 123/65; PULSE 91; TEMP 98.2
[2017-08-04 03:34] VITALS: BP 121/58; PULSE 87; TEMP 97.6
[2017-08-04 07:27] VITALS: BP 124/60; PULSE 90; TEMP 98.2
[2017-08-04 07:27] LABS: BASO # 0.1 (0.0-0.2); BASO % 0.8 % (0.0-2.0); EOS # 0.2 (0.0-0.7); EOS % 1.5 % (0-4.0); GRAN # 9.4 (1.4-6.5); GRAN % 79.9 % (42.2-75.2); LYMPH # 1.1 (1.2-3.4); LYMPH % 9.4 % (20.0-51.0); MEAN CELL VOLUME 86 fl (80.0-100.0); MEAN CORPUSCULAR HGB CONC 31 g/dl (33.0-37.0); MEAN PLATELET VOLUME 10.6 fl (7.4-10.4); MONO # 0.8 (0.1-0.6); MONO % 7.1 % (1.7-9.3); PLATELET COUNT 397 K/mm3 (130-400); REDCELL DISTRIBUTION WIDTH-CV 17.1 % (11.5-14.5)
[2017-08-04 07:32] LABS: HEMATOCRIT 24.9 % (42.0-52.0); HEMOGLOBIN 7.7 g/dl (13.5-18.0); MEAN CORPUSCULAR HEMOGLOBIN 27 pg (27.0-31.0)
[2017-08-04 07:45] LABS: CALCIUM 7.7 mg/dL (8.4-10.2); CREATININE, serum 1.38 mg/dL (0.66-1.25); POTASSIUM 3.8 mmol/L (3.4-5.0)
[2017-08-04] MEDS ORDERED: COREG12.5 MG PO (11:41)
[2017-08-04 11:44] VITALS: BP 115/54; PULSE 77; TEMP 98.4
[2017-08-04] MEDS ORDERED: MULTI VITAMINS1 TAB PO (11:44)
[2017-08-04] MEDS ORDERED: LASIX 20MG TABL20 MG PO (11:44)
[2017-08-04] MEDS ORDERED: HUMULIN 70/30 PE3 ML SQ (11:46)
[2017-08-04] MEDS ORDERED: ULTRAM 50MG TAB50 MG PO (11:47)
[2017-08-04 15:15] VITALS: BP 115/54; PULSE 77; TEMP 98.4
== END 2017-08-04 16:21 | DRG 871 ==
LOC: COL.ER 17:28 → ICU 19:04 → MEDICAL 07-31 15:56
PROVIDERS: Emergency Medicine; Family Medicine; Hospitalist; Nurse Practitioner; Nurse Practitioner Family
DX: A41.9 Sepsis, unspecified organism (principal); L89.153 Pressure ulcer of sacral region, stage 3; L89.313 Pressure ulcer of right buttock, stage 3; J18.9 Pneumonia, unspecified organism; I13.0 Hypertensive heart and chronic kidney disease with heart failure and stage 1 through stage 4 chronic kidney disease, or unspecified chronic kidney disease; I50.22 Chronic systolic (congestive) heart failure; E44.0 Moderate protein-calorie malnutrition; R53.81 Other malaise; I08.0 Rheumatic disorders of both mitral and aortic valves; R65.20 Severe sepsis without septic shock; R19.7 Diarrhea, unspecified; L89.612 Pressure ulcer of right heel, stage 2; L89.622 Pressure ulcer of left heel, stage 2; R91.8 Other nonspecific abnormal finding of lung field; L89.511 Pressure ulcer of right ankle, stage 1; E11.22 Type 2 diabetes mellitus with diabetic chronic kidney disease; E11.65 Type 2 diabetes mellitus with hyperglycemia; N18.3 Chronic kidney disease, stage 3 (moderate); Z79.4 Long term (current) use of insulin; E03.9 Hypothyroidism, unspecified; D64.9 Anemia, unspecified; K80.20 Calculus of gallbladder without cholecystitis without obstruction; I25.10 Atherosclerotic heart disease of native coronary artery without angina pectoris; Z95.2 Presence of prosthetic heart valve; Z95.1 Presence of aortocoronary bypass graft
CPT/HCPCS: 99223-AI; 99233-AI; 99239; J1815; J2543; J7030

== ENCOUNTER 2017-08-07 09:00 | Outpatient (RCR) | payer MEDICARE, OTHER ==
[2017-08-06] VITALS (8 sets, daily range): BP systolic 117–124; BP diastolic 47–53; PULSE 66–79; TEMP 96.9–98
[~2017-08-07] VITALS: Ht 177.8 cm; Wt 89.0 kg
[~2017-08-07 09:00] MED LIST changes: +COREG12.5 MG PO; +MULTI VITAMINS1 TAB PO; +WHEY PROTEIN IS1 POW PO
[2017-08-07 09:38] VITALS: BP 115/57; PULSE 72; TEMP 97
[2017-08-07 09:53] VITALS: BP 105/46; PULSE 57; TEMP 96.8
[2017-08-07 10:20] VITALS: BP 113/46; PULSE 60; TEMP 96.7
[2017-08-07 11:25] VITALS: BP 110/58; PULSE 57; TEMP 97.8
[2017-08-07 11:54] VITALS: BP 121/57; PULSE 60; TEMP 97.8
[2017-08-07 12:45] LABS: HEMOGLOBIN 10.2 g/dl (13.5-18.0)
[2017-08-07 12:48] LABS: HEMATOCRIT 33.4 % (42.0-52.0)
[2017-08-30] MEDS ORDERED: ASPIRIN E.C. 8181 MG PO (06:33)
[2017-08-30] MEDS ORDERED: ALBUTEROL0.83 MG/ML IH (06:33)
[2017-08-30] MEDS ORDERED: COREG12.5 MG PO (06:34)
[2017-08-30] MEDS ORDERED: ELIQUIS 2.5 PO (06:35)
[2017-08-30] MEDS ORDERED: FERRO-TIME325 MG PO (06:35)
[2017-08-30] MEDS ORDERED: DULCOLAX STOOL100 MG PO (06:35)
[2017-08-30] MEDS ORDERED: HUMULIN 70/3100 U/M1 SQ ×2 (06:36→13:40)
[2017-08-30] MEDS ORDERED: FOLIC ACID 11 MG/TA1 PO (06:36)
[2017-08-30] MEDS ORDERED: LASIX 20MG TABL20 MG PO (06:38)
[2017-08-30] MEDS ORDERED: ZAROXOLYN 2.52.5 MG PO (06:39)
[2017-08-30] MEDS ORDERED: KLOR-CON SPRIN10 MEQ PO (06:40)
[2017-08-30] MEDS ORDERED: PRESERVISION1 SGL PO (06:40)
[2017-08-30] MEDS ORDERED: KLOR-CON M1515 MEQ PO (09:56)
[2017-08-30] MEDS ORDERED: LEVOXYL0.05 MG PO (13:42)
[2017-08-30] MEDS ORDERED: MULTI VITAMINS1 TAB PO (13:43)
[2017-08-30] MEDS ORDERED: ALTACE 5MG5 MG PO (13:44)
[2017-08-30] MEDS ORDERED: HYDROCORTISO28.35 GM TOP (13:45)
[2017-08-30] MEDS ORDERED: TYLENOL 325MG325 MG PO (13:51)
[2017-08-30] MEDS ORDERED: ULTRAM 50MG TAB50 MG PO (13:53)
[2017-09-03] MEDS ORDERED: LASIX 20MG TABL20 MG PO (09:18)
[2017-09-10] MEDS ORDERED: ZAROXOLYN5 MG PO (19:56)
[2017-09-10] MEDS ORDERED: MIRALAX PA17 GM/Dose PO (19:57)
[2017-09-10] MEDS ORDERED: ULTRAM 50MG TAB50 MG PO (19:59)
[2017-09-25] MEDS ORDERED: HUMULIN 70/30 PE3 ML SQ ×2 (10:35)
[2017-09-25] MEDS ORDERED: ULTRAM 50MG TAB50 MG PO (10:36)
[2017-09-25] MEDS ORDERED: CORDARONE200 MG/TAB PO (10:38)
== END 2017-11-04 | disposition home or self-care (01) ==
LOC: EUO
PROVIDERS: Family Medicine
DX: D64.9 Anemia, unspecified (principal); I50.9 Heart failure, unspecified
CPT/HCPCS: J1940; J7050; P9016

== ENCOUNTER 2017-08-10 19:07 | Emergency (ER) | payer MEDICARE ==
[~2017-08-10] VITALS: Ht 177.8 cm; Wt 95.5 kg
[2017-08-10 19:11] VITALS: TEMP 99.8
[2017-08-10 19:27] LABS: BASO # 0.1 (0.0-0.2); BASO % 0.5 % (0.0-2.0); EOS # 0.1 (0.0-0.7); EOS % 0.5 % (0-4.0); GRAN # 12.3 (1.4-6.5); GRAN % 84.4 % (42.2-75.2); LYMPH # 0.9 (1.2-3.4); LYMPH % 6.5 % (20.0-51.0); MEAN CELL VOLUME 87 fl (80.0-100.0); MEAN CORPUSCULAR HGB CONC 31 g/dl (33.0-37.0); MEAN PLATELET VOLUME 10.5 fl (7.4-10.4); MONO % 6.5 % (1.7-9.3); PLATELET COUNT 358 K/mm3 (130-400); RED BLOOD COUNT 3.47 M/mm3 (4.20-5.60); REDCELL DISTRIBUTION WIDTH-CV 18.8 % (11.5-14.5)
[2017-08-10 19:28] LABS: HEMATOCRIT 30.3 % (42.0-52.0); HEMOGLOBIN 9.4 g/dl (13.5-18.0); MEAN CORPUSCULAR HEMOGLOBIN 27 pg (27.0-31.0)
[2017-08-10 19:36] LABS: ALBUMIN 2.7 gm/dL (3.5-5.0); BILIRUBIN,TOTAL 0.6 mg/dL (0.0-1.0); CALCIUM 8.2 mg/dL (8.4-10.2); CREATININE, serum 1.42 mg/dL (0.66-1.25); MAGNESIUM 2.2 mg/dL (1.6-2.3); PHOSPHOROUS 3.4 mg/dL (2.5-4.5); POTASSIUM 4.8 mmol/L (3.4-5.0); TOTAL PROTEIN 6.9 gm/dL (6.4-8.2)
[2017-08-10 19:47] LABS: TROPONIN-I 0.028 ng/mL (0.000-0.034)
[2017-08-10 19:58] LABS: C-REACTIVE PROTEIN 7.6 mg/dL (0.0-0.9)
[2017-08-10 21:16] LABS: COLLECTION METHOD CLEAN CATCH
[2017-08-10 21:26] LABS: MUCOUS Present /lpf; PH 5 (5-8); SQUAMOUS EPITHELIAL 0-2 /hpf; URINE APPEARANCE Cloudy; URINE BACTERIA Rare /hpf; URINE BILIRUBIN Negative (NEGATIVE); URINE BLOOD 3+ (NEGATIVE); URINE COLOR Amber; URINE GLUCOSE Negative (NEGATIVE); URINE KETONE Negative (NEGATIVE); URINE LEUKOCYTE ESTERASE Negative (NEGATIVE); URINE NITRATE Negative (NEGATIVE); URINE PROTEIN(semi-quant) 1+ (NEGATIVE); URINE RBC >50 /hpf; URINE UROBILINOGEN Negative (NEGATIVE)
[2017-08-10 21:45] VITALS: BP 114/62; PULSE 84
== END 2017-08-10 22:01 | disposition short-term general hospital (02) ==
LOC: COL.ER 19:07 → ICU 20:18 → COL.ER 20:18
PROVIDERS: Emergency Medicine
DX: R65.10 Systemic inflammatory response syndrome (SIRS) of non-infectious origin without acute organ dysfunction (principal); E11.9 Type 2 diabetes mellitus without complications; E03.9 Hypothyroidism, unspecified; I10 Essential (primary) hypertension; E78.5 Hyperlipidemia, unspecified; I50.9 Heart failure, unspecified; I25.10 Atherosclerotic heart disease of native coronary artery without angina pectoris; Z79.4 Long term (current) use of insulin; Z79.82 Long term (current) use of aspirin; Z79.01 Long term (current) use of anticoagulants
CPT/HCPCS: J0692; J1956; J3370; J7040

== ENCOUNTER 2017-09-10 19:14 | Inpatient (IN) | payer MEDICARE ==
[~2017-09-10] VITALS: Ht 177.8 cm; Wt 107.5 kg
[~2017-09-10 19:14] MED LIST changes: +DULCOLAX STOOL100 MG PO; +FERRO-TIME325 MG PO; +HYDROCORTISO28.35 GM TOP; +KLOR-CON M1515 MEQ PO; +PRESERVISION1 SGL PO
[2017-09-10 19:43] LABS: BASO # 0.1 (0.0-0.2); BASO % 0.4 % (0.0-2.0); EOS % 0.1 % (0-4.0); GRAN # 13.6 (1.4-6.5); GRAN % 86.3 % (42.2-75.2); LYMPH % 6.3 % (20.0-51.0); MEAN CELL VOLUME 84 fl (80.0-100.0); MEAN CORPUSCULAR HGB CONC 30 g/dl (33.0-37.0); MEAN PLATELET VOLUME 10.8 fl (7.4-10.4); MONO % 6.4 % (1.7-9.3); PLATELET COUNT 286 K/mm3 (130-400); REDCELL DISTRIBUTION WIDTH-CV 19.9 % (11.5-14.5)
[2017-09-10 19:45] LABS: HEMOGLOBIN 8.1 g/dl (13.5-18.0); MEAN CORPUSCULAR HEMOGLOBIN 25 pg (27.0-31.0)
[2017-09-10 19:51] LABS: ALBUMIN 2.6 gm/dL (3.5-5.0); BILIRUBIN,TOTAL 0.4 mg/dL (0.0-1.0); CREATININE, serum 1.35 mg/dL (0.66-1.25); POTASSIUM 3.7 mmol/L (3.4-5.0); TOTAL PROTEIN 6.3 gm/dL (6.4-8.2)
[2017-09-10] MEDS ORDERED: ZAROXOLYN5 MG PO (19:56)
[2017-09-10] MEDS ORDERED: MIRALAX PA17 GM/Dose PO (19:57)
[2017-09-10] MEDS ORDERED: ULTRAM 50MG TAB50 MG PO (19:59)
[2017-09-10 20:06] LABS: TROPONIN-I 0.076 ng/mL (0.000-0.034)
[2017-09-10 22:09] VITALS: BP 100/53; PULSE 72; TEMP 98.4
[2017-09-10 23:45] VITALS: BP 100/56; PULSE 82; TEMP 98.4
[2017-09-11 01:31] LABS: COLLECTION METHOD CLEAN CATCH
[2017-09-11 01:39] LABS: HYALINE CAST >12 /lpf; MUCOUS Present /lpf; PH 5 (5-8); SQUAMOUS EPITHELIAL 0-2 /hpf; URINE APPEARANCE Clear; URINE BACTERIA Rare /hpf; URINE BILIRUBIN Negative (NEGATIVE); URINE BLOOD 2+ (NEGATIVE); URINE COLOR Yellow; URINE GLUCOSE Negative (NEGATIVE); URINE KETONE Negative (NEGATIVE); URINE LEUKOCYTE ESTERASE Negative (NEGATIVE); URINE NITRATE Negative (NEGATIVE); URINE PROTEIN(semi-quant) Negative (NEGATIVE); URINE UROBILINOGEN Negative (NEGATIVE)
[2017-09-11 02:47] VITALS: BP 119/51; PULSE 72; TEMP 97.4
[2017-09-11 07:31] VITALS: BP 98/48; PULSE 62; TEMP 98.5
[2017-09-11 07:48] LABS: BASO # 0.1 (0.0-0.2); BASO % 0.7 % (0.0-2.0); EOS % 0.3 % (0-4.0); GRAN # 11.2 (1.4-6.5); GRAN % 84.1 % (42.2-75.2); LYMPH % 7.5 % (20.0-51.0); MEAN CELL VOLUME 85 fl (80.0-100.0); MEAN CORPUSCULAR HGB CONC 29 g/dl (33.0-37.0); MEAN PLATELET VOLUME 11.1 fl (7.4-10.4); MONO # 0.9 (0.1-0.6); MONO % 6.7 % (1.7-9.3); PLATELET COUNT 267 K/mm3 (130-400); RED BLOOD COUNT 3.13 M/mm3 (4.20-5.60); REDCELL DISTRIBUTION WIDTH-CV 19.9 % (11.5-14.5)
[2017-09-11 07:51] LABS: HEMATOCRIT 26.5 % (42.0-52.0); HEMOGLOBIN 7.7 g/dl (13.5-18.0); MEAN CORPUSCULAR HEMOGLOBIN 25 pg (27.0-31.0)
[2017-09-11 07:55] LABS: CALCIUM 7.9 mg/dL (8.4-10.2); CREATININE, serum 1.35 mg/dL (0.66-1.25); POTASSIUM 3.9 mmol/L (3.4-5.0)
[2017-09-11 11:49] VITALS: BP 102/54; PULSE 67; TEMP 98.2
[2017-09-11 16:39] VITALS: BP 103/54; PULSE 79; TEMP 98.2
[2017-09-11 20:35] VITALS: BP 123/59; PULSE 79; TEMP 98.6
[2017-09-11 23:26] VITALS: BP 112/66; PULSE 84; TEMP 98.6
[2017-09-12 04:00] VITALS: BP 142/56; PULSE 80; TEMP 98.6
[2017-09-12 08:58] VITALS: BP 100/50; PULSE 79; TEMP 97.5
[2017-09-12 13:47] VITALS: BP 114/60; PULSE 78; TEMP 98.1
[2017-09-12 16:26] LABS: BASO # 0.1 (0.0-0.2); BASO % 0.6 % (0.0-2.0); EOS # 0.2 (0.0-0.7); EOS % 1.3 % (0-4.0); GRAN # 11.2 (1.4-6.5); LYMPH # 0.9 (1.2-3.4); MEAN CELL VOLUME 84 fl (80.0-100.0); MEAN CORPUSCULAR HGB CONC 30 g/dl (33.0-37.0); MEAN PLATELET VOLUME 11.5 fl (7.4-10.4); MONO # 0.8 (0.1-0.6); MONO % 6.3 % (1.7-9.3); PLATELET COUNT 318 K/mm3 (130-400); RED BLOOD COUNT 3.35 M/mm3 (4.20-5.60); REDCELL DISTRIBUTION WIDTH-CV 19.9 % (11.5-14.5)
[2017-09-12 16:27] LABS: HEMOGLOBIN 8.3 g/dl (13.5-18.0); MEAN CORPUSCULAR HEMOGLOBIN 25 pg (27.0-31.0)
[2017-09-12 17:00] VITALS: BP 110/63; PULSE 80; TEMP 98.2
[2017-09-12 20:25] VITALS: BP 112/58; PULSE 77; TEMP 98.5
[2017-09-13 00:07] VITALS: BP 133/63; PULSE 77; TEMP 98.6
[2017-09-13 04:35] VITALS: BP 121/61; PULSE 79; TEMP 98.5
[2017-09-13 06:17] LABS: BASO # 0.1 (0.0-0.2); BASO % 0.8 % (0.0-2.0); EOS # 0.3 (0.0-0.7); EOS % 2.7 % (0-4.0); GRAN # 8.8 (1.4-6.5); GRAN % 81.1 % (42.2-75.2); LYMPH # 0.8 (1.2-3.4); MEAN CELL VOLUME 85 fl (80.0-100.0); MEAN CORPUSCULAR HGB CONC 29 g/dl (33.0-37.0); MEAN PLATELET VOLUME 10.7 fl (7.4-10.4); MONO # 0.8 (0.1-0.6); MONO % 7.3 % (1.7-9.3); PLATELET COUNT 319 K/mm3 (130-400); RED BLOOD COUNT 3.26 M/mm3 (4.20-5.60); REDCELL DISTRIBUTION WIDTH-CV 19.9 % (11.5-14.5)
[2017-09-13 06:18] LABS: HEMATOCRIT 27.7 % (42.0-52.0); HEMOGLOBIN 8.1 g/dl (13.5-18.0); MEAN CORPUSCULAR HEMOGLOBIN 25 pg (27.0-31.0)
[2017-09-13 06:29] LABS: CALCIUM 7.6 mg/dL (8.4-10.2); CREATININE, serum 1.31 mg/dL (0.66-1.25); POTASSIUM 3.2 mmol/L (3.4-5.0)
[2017-09-13 08:02] VITALS: BP 117/57; PULSE 89; TEMP 98.2
[2017-09-13 11:31] VITALS: BP 115/49; PULSE 64; TEMP 98.2
[2017-09-13 16:04] VITALS: BP 107/73; PULSE 63; TEMP 97.2
[2017-09-13 19:57] VITALS: BP 114/51; PULSE 66; TEMP 98.1
[2017-09-14 00:12] VITALS: BP 126/38; PULSE 52; TEMP 98.2
[2017-09-14 04:42] VITALS: BP 108/54; PULSE 68
[2017-09-14 06:43] LABS: MEAN CELL VOLUME 87 fl (80.0-100.0); MEAN CORPUSCULAR HGB CONC 29 g/dl (33.0-37.0); PLATELET COUNT 287 K/mm3 (130-400); RED BLOOD COUNT 3.16 M/mm3 (4.20-5.60); REDCELL DISTRIBUTION WIDTH-CV 19.7 % (11.5-14.5)
[2017-09-14 06:47] LABS: HEMATOCRIT 27.4 % (42.0-52.0); HEMOGLOBIN 7.8 g/dl (13.5-18.0); MEAN CORPUSCULAR HEMOGLOBIN 25 pg (27.0-31.0)
[2017-09-14 06:54] LABS: CALCIUM 7.5 mg/dL (8.4-10.2); CREATININE, serum 1.15 mg/dL (0.66-1.25); POTASSIUM 3.2 mmol/L (3.4-5.0)
[2017-09-14 07:00] LABS: BAND 3 % (0-10); EOSINOPHIL 4 % (0-4); LYMPHOCYTE 7 % (20.0-51.0); NEUTROPHILS 84 % (42.0-75.2); PLATELET ESTIMATE NORMAL (NORMAL)
[2017-09-14 07:01] LABS: ANISOCYTOSIS 2+; HYPOCHROMIA 3+
[2017-09-14 08:28] VITALS: BP 115/53; PULSE 70; TEMP 97.8
[2017-09-14 11:56] VITALS: BP 130/75; PULSE 73; TEMP 97.4
[2017-09-14 16:17] VITALS: BP 105/58; PULSE 71; TEMP 98.4
[2017-09-14 20:00] VITALS: BP 120/96; PULSE 74; TEMP 98.4
[2017-09-15 01:01] VITALS: BP 112/55; PULSE 67; TEMP 98
[2017-09-15 05:03] VITALS: BP 124/60; PULSE 73; TEMP 98
[2017-09-15 07:34] VITALS: BP 121/43; PULSE 60; TEMP 98.4
[2017-09-15 11:38] VITALS: BP 122/60; PULSE 76; TEMP 97.9
[2017-09-15 15:29] VITALS: BP 143/57; PULSE 57; TEMP 97.6
[2017-09-15 19:44] VITALS: BP 141/98; PULSE 91; TEMP 98.2
[2017-09-16 00:51] VITALS: BP 107/46; PULSE 66; TEMP 98.5
[2017-09-16 04:28] VITALS: BP 104/45; PULSE 68; TEMP 98
[2017-09-16 07:42] VITALS: BP 112/49; PULSE 81; TEMP 98.1
[2017-09-16 07:59] LABS: MEAN CELL VOLUME 86 fl (80.0-100.0); MEAN CORPUSCULAR HGB CONC 28 g/dl (33.0-37.0); MEAN PLATELET VOLUME 10.8 fl (7.4-10.4); PLATELET COUNT 347 K/mm3 (130-400); RED BLOOD COUNT 3.42 M/mm3 (4.20-5.60); REDCELL DISTRIBUTION WIDTH-CV 19.9 % (11.5-14.5)
[2017-09-16 08:01] LABS: HEMATOCRIT 29.5 % (42.0-52.0); HEMOGLOBIN 8.3 g/dl (13.5-18.0); MEAN CORPUSCULAR HEMOGLOBIN 24 pg (27.0-31.0)
[2017-09-16 08:14] LABS: CALCIUM 7.8 mg/dL (8.4-10.2); CREATININE, serum 1.09 mg/dL (0.66-1.25); POTASSIUM 3.6 mmol/L (3.4-5.0)
[2017-09-16 08:44] LABS: BAND 2 % (0-10); EOSINOPHIL 1 % (0-4); LYMPHOCYTE 12 % (20.0-51.0); NEUTROPHILS 78 % (42.0-75.2)
[2017-09-16 08:46] LABS: HYPOCHROMIA 3+; PLATELET ESTIMATE NORMAL (NORMAL)
[2017-09-16 08:47] LABS: ANISOCYTOSIS 1+
[2017-09-16 12:52] VITALS: BP 119/50; PULSE 72; TEMP 98.3
[2017-09-16 17:15] VITALS: BP 105/51; PULSE 74; TEMP 98
[2017-09-16 19:47] VITALS: BP 145/60; PULSE 63; TEMP 98.7
[2017-09-17] VITALS (7 sets, daily range): BP systolic 101–126; BP diastolic 40–65; PULSE 67–85; TEMP 98–98.6
[2017-09-17 09:42] LABS: INR 2.1 (0.8-3.0); PROTHROMBIN TIME 23.7 SECONDS (9.7-12.8)
[2017-09-17 09:49] LABS: HEMATOCRIT 28.6 % (42.0-52.0); HEMOGLOBIN 8.6 g/dl (13.5-18.0); MEAN CELL VOLUME 87 fl (80.0-100.0); MEAN CORPUSCULAR HEMOGLOBIN 26 pg (27.0-31.0); MEAN CORPUSCULAR HGB CONC 30 g/dl (33.0-37.0); MEAN PLATELET VOLUME 11.5 fl (7.4-10.4); PLATELET COUNT 346 K/mm3 (130-400); RED BLOOD COUNT 3.29 M/mm3 (4.20-5.60); REDCELL DISTRIBUTION WIDTH-CV 20.9 % (11.5-14.5)
[2017-09-17 10:05] LABS: CREATININE, serum 1.09 mg/dL (0.66-1.25); MAGNESIUM 1.9 mg/dL (1.6-2.3); POTASSIUM 3.7 mmol/L (3.4-5.0)
[2017-09-17 10:07] LABS: BAND 5 % (0-10); LYMPHOCYTE 6 % (20.0-51.0); NEUTROPHILS 85 % (42.0-75.2)
[2017-09-17 10:08] LABS: ANISOCYTOSIS 2+; PLATELET ESTIMATE NORMAL (NORMAL); POLYCHROMASIA 1+
[2017-09-18 06:19] VITALS: BP 127/51; PULSE 78; TEMP 98.1
[2017-09-18 07:01] LABS: MEAN CELL VOLUME 85 fl (80.0-100.0); MEAN CORPUSCULAR HGB CONC 29 g/dl (33.0-37.0); MEAN PLATELET VOLUME 10.8 fl (7.4-10.4); PLATELET COUNT 392 K/mm3 (130-400); RED BLOOD COUNT 3.36 M/mm3 (4.20-5.60); REDCELL DISTRIBUTION WIDTH-CV 19.9 % (11.5-14.5)
[2017-09-18 07:02] LABS: HEMATOCRIT 28.5 % (42.0-52.0); HEMOGLOBIN 8.2 g/dl (13.5-18.0); MEAN CORPUSCULAR HEMOGLOBIN 24 pg (27.0-31.0)
[2017-09-18 07:11] LABS: CALCIUM 7.8 mg/dL (8.4-10.2); CREATININE, serum 1.27 mg/dL (0.66-1.25); POTASSIUM 3.6 mmol/L (3.4-5.0)
[2017-09-18 07:12] LABS: INR 2.1 (0.8-3.0); PROTHROMBIN TIME 24.2 SECONDS (9.7-12.8)
[2017-09-18 07:25] VITALS: BP 113/66; PULSE 80; TEMP 97.8
[2017-09-18 07:26] LABS: BAND 3 % (0-10); EOSINOPHIL 1 % (0-4); LYMPHOCYTE 6 % (20.0-51.0); NEUTROPHILS 80 % (42.0-75.2)
[2017-09-18 07:28] LABS: ANISOCYTOSIS 1+; HYPOCHROMIA 3+; PLATELET ESTIMATE NORMAL (NORMAL)
[2017-09-18 11:35] VITALS: BP 99/50; PULSE 65; TEMP 97.8
[2017-09-18 16:19] VITALS: BP 108/55; PULSE 69; TEMP 97.8
[2017-09-18 19:40] VITALS: BP 103/53; PULSE 67; TEMP 97
[2017-09-18 23:55] VITALS: BP 123/59; PULSE 70; TEMP 98.6
[2017-09-19 04:50] VITALS: BP 124/69; PULSE 80; TEMP 98.2
[2017-09-19 06:59] LABS: MEAN CELL VOLUME 85 fl (80.0-100.0); MEAN CORPUSCULAR HGB CONC 29 g/dl (33.0-37.0); MEAN PLATELET VOLUME 10.9 fl (7.4-10.4); PLATELET COUNT 382 K/mm3 (130-400); RED BLOOD COUNT 3.26 M/mm3 (4.20-5.60); REDCELL DISTRIBUTION WIDTH-CV 19.9 % (11.5-14.5)
[2017-09-19 07:01] LABS: HEMATOCRIT 27.6 % (42.0-52.0); MEAN CORPUSCULAR HEMOGLOBIN 25 pg (27.0-31.0)
[2017-09-19 07:14] LABS: ALBUMIN 2.4 gm/dL (3.5-5.0); BILIRUBIN,TOTAL 0.4 mg/dL (0.0-1.0); CALCIUM 7.8 mg/dL (8.4-10.2); CREATININE, serum 1.48 mg/dL (0.66-1.25); POTASSIUM 3.8 mmol/L (3.4-5.0); TOTAL PROTEIN 6.1 gm/dL (6.4-8.2)
[2017-09-19 07:43] VITALS: BP 119/53; PULSE 82; TEMP 99.2
[2017-09-19 09:09] LABS: ANISOCYTOSIS 3+; BAND 8 % (0-10); BASOPHIL 1 % (0-2); LYMPHOCYTE 7 % (20.0-51.0); NEUTROPHILS 76 % (42.0-75.2); PLATELET ESTIMATE NORMAL (NORMAL)
[2017-09-19 09:10] LABS: HYPOCHROMIA 1+; OVALOCYTES 1+
[2017-09-19 12:42] VITALS: BP 98/55; PULSE 62; TEMP 98.9
[2017-09-19 16:27] VITALS: BP 102/63; PULSE 63; TEMP 98.6
[2017-09-19 20:08] VITALS: BP 115/51; PULSE 72; TEMP 98.3
[2017-09-20 00:59] VITALS: BP 120/54; PULSE 62; TEMP 97.8
[2017-09-20 05:26] VITALS: BP 122/58; PULSE 74; TEMP 98.1
[2017-09-20 06:49] LABS: MEAN CELL VOLUME 85 fl (80.0-100.0); MEAN CORPUSCULAR HGB CONC 28 g/dl (33.0-37.0); MEAN PLATELET VOLUME 10.9 fl (7.4-10.4); PLATELET COUNT 407 K/mm3 (130-400); RED BLOOD COUNT 3.33 M/mm3 (4.20-5.60); REDCELL DISTRIBUTION WIDTH-CV 19.9 % (11.5-14.5)
[2017-09-20 07:00] LABS: HEMATOCRIT 28.4 % (42.0-52.0); MEAN CORPUSCULAR HEMOGLOBIN 24 pg (27.0-31.0)
[2017-09-20 07:06] LABS: CALCIUM 7.8 mg/dL (8.4-10.2); CREATININE, serum 1.7 mg/dL (0.66-1.25)
[2017-09-20 07:26] VITALS: BP 99/54; PULSE 63; TEMP 98.1
[2017-09-20 09:51] LABS: BAND 6 % (0-10); BASOPHIL 1 % (0-2); LYMPHOCYTE 11 % (20.0-51.0); NEUTROPHILS 77 % (42.0-75.2); PLATELET ESTIMATE INCREASED (NORMAL)
[2017-09-20 09:52] LABS: ANISOCYTOSIS 3+; HYPOCHROMIA 2+; OVALOCYTES 1+
[2017-09-20 11:49] VITALS: BP 103/50; PULSE 72; TEMP 98.3
[2017-09-20 15:57] VITALS: BP 103/55; PULSE 69; TEMP 98.5
[2017-09-20 20:37] VITALS: BP 125/70; PULSE 75; TEMP 99.4
[2017-09-21 01:12] VITALS: BP 127/69; PULSE 75; TEMP 98.7
[2017-09-21 04:04] VITALS: BP 119/59; PULSE 74; TEMP 97.7
[2017-09-21 06:45] LABS: BASO # 0.1 (0.0-0.2); BASO % 0.6 % (0.0-2.0); EOS # 0.2 (0.0-0.7); EOS % 1.1 % (0-4.0); GRAN # 11.6 (1.4-6.5); LYMPH # 0.9 (1.2-3.4); LYMPH % 6.7 % (20.0-51.0); MEAN CELL VOLUME 84 fl (80.0-100.0); MEAN CORPUSCULAR HGB CONC 29 g/dl (33.0-37.0); MEAN PLATELET VOLUME 10.4 fl (7.4-10.4); MONO % 7.3 % (1.7-9.3); PLATELET COUNT 457 K/mm3 (130-400); RED BLOOD COUNT 3.38 M/mm3 (4.20-5.60); REDCELL DISTRIBUTION WIDTH-CV 19.9 % (11.5-14.5)
[2017-09-21 06:50] LABS: HEMATOCRIT 28.5 % (42.0-52.0); HEMOGLOBIN 8.3 g/dl (13.5-18.0); MEAN CORPUSCULAR HEMOGLOBIN 25 pg (27.0-31.0)
[2017-09-21 06:57] LABS: CALCIUM 7.8 mg/dL (8.4-10.2); CREATININE, serum 1.79 mg/dL (0.66-1.25); POTASSIUM 3.8 mmol/L (3.4-5.0)
[2017-09-21 07:30] VITALS: BP 110/65; PULSE 74; TEMP 98.2
[2017-09-21 08:31] LABS: INR 2.1 (0.8-3.0); PROTHROMBIN TIME 23.6 SECONDS (9.7-12.8)
[2017-09-21 11:55] VITALS: BP 110/64; PULSE 96; TEMP 98.3
[2017-09-21 15:35] VITALS: BP 102/44; PULSE 60; TEMP 98.5
[2017-09-21 20:40] VITALS: BP 121/49; PULSE 63; TEMP 98.1
[2017-09-22 00:48] VITALS: BP 136/65; PULSE 65; TEMP 97.9
[2017-09-22 04:23] VITALS: BP 108/55; PULSE 67; TEMP 98
[2017-09-22 07:00] LABS: INR 2.1 (0.8-3.0); PROTHROMBIN TIME 24.1 SECONDS (9.7-12.8)
[2017-09-22 07:51] VITALS: BP 104/51; PULSE 75; TEMP 98.4
[2017-09-22 07:59] LABS: BASO # 0.1 (0.0-0.2); BASO % 0.7 % (0.0-2.0); EOS # 0.2 (0.0-0.7); EOS % 1.1 % (0-4.0); GRAN # 11.5 (1.4-6.5); GRAN % 83.2 % (42.2-75.2); HEMATOCRIT 28.8 % (42.0-52.0); HEMOGLOBIN 8.4 g/dl (13.5-18.0); LYMPH # 0.8 (1.2-3.4); LYMPH % 5.9 % (20.0-51.0); MEAN CELL VOLUME 83 fl (80.0-100.0); MEAN CORPUSCULAR HEMOGLOBIN 24 pg (27.0-31.0); MEAN CORPUSCULAR HGB CONC 29 g/dl (33.0-37.0); MEAN PLATELET VOLUME 10.8 fl (7.4-10.4); MONO # 1.1 (0.1-0.6); PLATELET COUNT 453 K/mm3 (130-400); RED BLOOD COUNT 3.47 M/mm3 (4.20-5.60); REDCELL DISTRIBUTION WIDTH-CV 20.1 % (11.5-14.5)
[2017-09-22 08:04] LABS: CALCIUM 7.9 mg/dL (8.4-10.2); CREATININE, serum 1.76 mg/dL (0.66-1.25); POTASSIUM 3.7 mmol/L (3.4-5.0)
[2017-09-22 13:08] VITALS: BP 114/50; PULSE 73; TEMP 98.2
[2017-09-22 15:46] VITALS: BP 131/57; PULSE 76; TEMP 99.3
[2017-09-22 20:00] VITALS: BP 97/44; PULSE 68; TEMP 98.5
[2017-09-23] VITALS (7 sets, daily range): BP systolic 104–127; BP diastolic 40–61; PULSE 64–76; TEMP 97.3–98.6
[2017-09-23 06:32] LABS: BASO # 0.1 (0.0-0.2); BASO % 0.8 % (0.0-2.0); EOS # 0.1 (0.0-0.7); EOS % 0.6 % (0-4.0); GRAN # 11.6 (1.4-6.5); MEAN CELL VOLUME 84 fl (80.0-100.0); MEAN CORPUSCULAR HGB CONC 29 g/dl (33.0-37.0); MEAN PLATELET VOLUME 10.4 fl (7.4-10.4); MONO % 7.5 % (1.7-9.3); PLATELET COUNT 441 K/mm3 (130-400); RED BLOOD COUNT 3.43 M/mm3 (4.20-5.60); REDCELL DISTRIBUTION WIDTH-CV 20.2 % (11.5-14.5)
[2017-09-23 06:36] LABS: PROTHROMBIN TIME 22.5 SECONDS (9.7-12.8)
[2017-09-23 06:43] LABS: HEMATOCRIT 28.9 % (42.0-52.0); HEMOGLOBIN 8.3 g/dl (13.5-18.0); MEAN CORPUSCULAR HEMOGLOBIN 24 pg (27.0-31.0)
[2017-09-23 06:44] LABS: CALCIUM 7.7 mg/dL (8.4-10.2); CREATININE, serum 1.81 mg/dL (0.66-1.25); POTASSIUM 3.8 mmol/L (3.4-5.0)
[2017-09-24] VITALS (13 sets, daily range): BP systolic 100–123; BP diastolic 39–56; PULSE 63–88; TEMP 97.4–98.5
[2017-09-24 06:46] LABS: MEAN CELL VOLUME 83 fl (80.0-100.0); MEAN CORPUSCULAR HGB CONC 29 g/dl (33.0-37.0); MEAN PLATELET VOLUME 10.2 fl (7.4-10.4); PLATELET COUNT 361 K/mm3 (130-400); RED BLOOD COUNT 3.39 M/mm3 (4.20-5.60); REDCELL DISTRIBUTION WIDTH-CV 20.4 % (11.5-14.5)
[2017-09-24 06:50] LABS: INR 1.8 (0.8-3.0); PROTHROMBIN TIME 20.5 SECONDS (9.7-12.8)
[2017-09-24 06:52] LABS: HEMATOCRIT 28.2 % (42.0-52.0); HEMOGLOBIN 8.1 g/dl (13.5-18.0); MEAN CORPUSCULAR HEMOGLOBIN 24 pg (27.0-31.0)
[2017-09-24 07:00] LABS: CALCIUM 7.6 mg/dL (8.4-10.2); CREATININE, serum 1.89 mg/dL (0.66-1.25); POTASSIUM 3.4 mmol/L (3.4-5.0)
[2017-09-24 07:40] LABS: LYMPHOCYTE 6 % (20.0-51.0); NEUTROPHILS 91 % (42.0-75.2)
[2017-09-24 07:41] LABS: HYPOCHROMIA 1+
[2017-09-24 07:42] LABS: ANISOCYTOSIS 1+; PLATELET ESTIMATE NORMAL (NORMAL)
[2017-09-25 03:29] VITALS: BP 108/45; PULSE 65; TEMP 98.2
[2017-09-25 06:29] LABS: BASO # 0.1 (0.0-0.2); BASO % 0.9 % (0.0-2.0); EOS # 0.1 (0.0-0.7); EOS % 1.3 % (0-4.0); GRAN # 7.7 (1.4-6.5); GRAN % 78.9 % (42.2-75.2); LYMPH # 0.9 (1.2-3.4); MEAN CELL VOLUME 84 fl (80.0-100.0); MEAN CORPUSCULAR HGB CONC 29 g/dl (33.0-37.0); MEAN PLATELET VOLUME 10.1 fl (7.4-10.4); MONO # 0.9 (0.1-0.6); MONO % 8.8 % (1.7-9.3); PLATELET COUNT 332 K/mm3 (130-400); RED BLOOD COUNT 3.26 M/mm3 (4.20-5.60); REDCELL DISTRIBUTION WIDTH-CV 20.3 % (11.5-14.5)
[2017-09-25 06:31] LABS: HEMATOCRIT 27.4 % (42.0-52.0); HEMOGLOBIN 7.9 g/dl (13.5-18.0); MEAN CORPUSCULAR HEMOGLOBIN 24 pg (27.0-31.0)
[2017-09-25 06:42] LABS: INR 1.9 (0.8-3.0); PROTHROMBIN TIME 21.1 SECONDS (9.7-12.8)
[2017-09-25 06:54] LABS: CALCIUM 7.8 mg/dL (8.4-10.2); CREATININE, serum 2.06 mg/dL (0.66-1.25); MAGNESIUM 1.8 mg/dL (1.6-2.3); POTASSIUM 3.5 mmol/L (3.4-5.0)
[2017-09-25 07:54] VITALS: BP 119/49; PULSE 65; TEMP 98.1
[2017-09-25] MEDS ORDERED: HUMULIN 70/30 PE3 ML SQ ×2 (10:35)
[2017-09-25] MEDS ORDERED: ULTRAM 50MG TAB50 MG PO (10:36)
[2017-09-25] MEDS ORDERED: CORDARONE200 MG/TAB PO (10:38)
[2017-09-25 12:05] VITALS: BP 104/48; PULSE 59; TEMP 98.2
[2017-09-25 16:22] VITALS: BP 106/44; PULSE 63; TEMP 98.3
[2017-09-25 21:41] VITALS: BP 117/85; PULSE 74; TEMP 98.1
[2017-09-25 23:34] VITALS: BP 102/50; PULSE 85; TEMP 98.5
[2017-09-26 06:26] VITALS: BP 110/52; PULSE 78; TEMP 98.7
[2017-09-26 08:00] VITALS: BP 114/72; PULSE 69; TEMP 97.8
[2017-09-26 09:44] VITALS: BP 114/72; PULSE 69; TEMP 97.8
== END 2017-09-26 11:20 | disposition hospice, inpatient (51) | DRG 280 ==
LOC: COL.ER 19:14 → MEDICAL 21:28
PROVIDERS: Emergency Medicine; Family Medicine; Internal Medicine; Internal Medicine Cardiovascular Disease; Internal Medicine Pulmonary Disease; Nurse Practitioner; Nurse Practitioner Family; Physician Assistant
PROC: 0W9B3ZZ Drainage of Left Pleural Cavity, Percutaneous Approach (ICD-10-PCS; principal; 2017-09-24)
DX: I13.0 Hypertensive heart and chronic kidney disease with heart failure and stage 1 through stage 4 chronic kidney disease, or unspecified chronic kidney disease (principal); I50.23 Acute on chronic systolic (congestive) heart failure; I21.A1 Myocardial infarction type 2; J18.9 Pneumonia, unspecified organism; Z66 Do not resuscitate; Z51.5 Encounter for palliative care; J90 Pleural effusion, not elsewhere classified; N17.9 Acute kidney failure, unspecified; I47.2 Ventricular tachycardia; N18.9 Chronic kidney disease, unspecified; I25.10 Atherosclerotic heart disease of native coronary artery without angina pectoris; E11.22 Type 2 diabetes mellitus with diabetic chronic kidney disease; I48.91 Unspecified atrial fibrillation; D63.1 Anemia in chronic kidney disease; Z95.1 Presence of aortocoronary bypass graft; Z79.01 Long term (current) use of anticoagulants; Z95.2 Presence of prosthetic heart valve; E87.6 Hypokalemia
CPT/HCPCS: 99223-AI; 99232-AI; 99233-AI; 99239; C1751; J0692; J1815; J1940; J2543; J3370; J3480; J7050; J7060